=== PATIENT | female | born 1945 | race Hispanic/Latino ===

== ENCOUNTER 2018-04-06 16:02 | Inpatient (IN) | payer MEDICARE ==
[~2018-04-06] VITALS: Ht 162.6 cm; Wt 77.1 kg
[2018-04-06] MEDS ORDERED: PANTOPRAZOLE 40 MG 10ML VIAL IV ONE ×2 (16:45→20:00)
[2018-04-06 16:52] LABS: ABG HCO3 19 mmol/L (23-28); ABG PCO2 26 mmHg (41-51); ABG PH 7.47 (7.31-7.41); ABG PO2 60 mmHg (80-105)
[2018-04-06 16:56] LABS: BASOPHILS % 0.3 % (0.0-1.0); EOSINOPHILS # (AUTO) 0.1 (0.0-0.4); EOSINOPHILS % 0.5 % (0.0-6.0); HEMATOCRIT 29.3 % (34.2-44.1); HEMOGLOBIN 9.6 g/dL (12.0-16.0); LYMPHOCYTES # (AUTO) 2.4 (1.0-3.2); LYMPHOCYTES % 20.1 % (18.0-39.1); MEAN CORPUSCULAR HGB CONC 32.8 g/dL (31-35); MEAN CORPUSCULAR VOLUME 79.4 fL (81-99); MONOCYTES % 8.1 % (4.4-11.3); NEUTROPHILS # (AUTO) 8.5 (2.1-6.9); NEUTROPHILS % 70.3 % (38.7-80.0); PLATELET COUNT 538 x10e3/uL (140-360); RED BLOOD COUNT 3.69 x10e6/uL (3.6-5.1); RED CELL DISTRIBUTION WIDTH 13.9 % (11.7-14.4)
[2018-04-06 17:04] LABS: INR 1.16; PROTHROMBIN TIME 15.8 seconds (11.9-14.5)
[2018-04-06 17:05] LABS: PARTIAL THROMBOPLASTIN TIME 41.1 seconds (23.8-35.5)
[2018-04-06] MEDS ORDERED: AMLODIPINE BESY10 MG PO (17:05)
[2018-04-06] MEDS ORDERED: LOSARTAN-HCTZ1 EAC1 PEG (17:05)
[2018-04-06 17:14] LABS: ALANINE AMINOTRANSFERASE 65 IU/L (0-55); ALBUMIN 2.8 g/dL (3.5-5.0); ALBUMIN/GLOBULIN RATIO 0.5 (0.8-2.0); ALKALINE PHOSPHATASE 154 IU/L (40-150); ANION GAP 16.5 mmol/L (8-16); BLOOD UREA NITROGEN 26 mg/dL (7-26); BUN/CREATININE RATIO 16 (6-25); CALCIUM 9.1 mg/dL (8.4-10.2); CARBON DIOXIDE 21 mmol/L (22-29); CHLORIDE 90 mmol/L (98-107); CREATINE KINASE 83 IU/L (29-168); CREATININE, SERUM 1.62 mg/dL (0.57-1.11); EST GLOMERULAR FILTRATION RATE 31 ML/MIN (60-); GLUCOSE 128 mg/dL (74-118); MAGNESIUM 2.3 MG/DL (1.3-2.1); POTASSIUM 3.5 mmol/L (3.5-5.1); SODIUM 124 mmol/L (136-145)
[2018-04-06 17:23] LABS: B-TYPE NATRIURETIC PEPTIDE2 32.5 pg/mL (0-100)
[2018-04-06] MEDS ORDERED: ENOXAPARIN SODIUM INJ 100 MG/ML SYR SC ONE (17:45)
--- NOTE | 2018-04-06 18:40 | NUR ---
NOTIFIED POWER SWITCHBOARD OPERATOR TO PAGE ULTRASOUND FOR STAT ECHO.
[2018-04-06] MEDS ORDERED: AZITHROMYCIN 500MG/NS 250 ML 250 ML IV SCH (19:30)
[2018-04-06] MEDS ORDERED: ONDANSETRON HCL INJ 2MG/ML 2ML 2 MG/ML VIAL IV PRN (19:45)
[2018-04-06] MEDS ORDERED: SODIUM CHLORIDE 0.9% 1000ML 1,000 ML IV ONE (19:45)
[2018-04-06 19:57] LABS: CLARITY,URINE SL CLOUDY (CLEAR); COLOR,URINE YELLOW (YELLOW); LEUKOCYTE ESTERASE ,URINE NEGATIVE (NEGATIVE); NITRITE,URINE NEGATIVE (NEGATIVE)
[2018-04-06 19:58] LABS: BILIRUBIN,URINE NEGATIVE (NEGATIVE); EPITHELIAL CELLS,URINE MODERATE /LPF; HYALINE CASTS 0-1 (0-1); KETONES,URINE NEGATIVE (NEGATIVE); PROTEIN,URINE DIPSTICK NEGATIVE (NEGATIVE); RBC,URINE 0-5 /HPF (0-5); RENAL EPITHELIAL CELLS,URINE FEW; TRANSITIONAL EPI CELLS,URINE MANY; URINE UROBILINOGEN 0.2 mg/dL (0.2 - 1); WBC,URINE (MAN) 0-5 /HPF (0-5)
--- NOTE | 2018-04-06 20:16 | Diagnostic Imaging Report ---
EXAMINATION: CHEST 2 VIEWS INDICATION: ^SOB ^[id number] ^[id number] COMPARISON: None FINDINGS: PA and lateral views TUBES and LINES: None. LUNGS: Lungs are well inflated. Bibasilar opacities likely representing atelectasis from adjacent effusions. Superimposed consolidation not excluded. Central pulmonary venous congestion. PLEURA: Small bilateral pleural effusions, left greater than right. No pneumothorax. HEART AND MEDIASTINUM: The cardiomediastinal silhouette is partially obscured by adjacent pleural effusions but otherwise unremarkable. BONES AND SOFT TISSUES: No acute osseous lesion. Soft tissues are unremarkable. UPPER ABDOMEN: No free air under the diaphragm. IMPRESSION: Small bilateral pleural effusions, left greater than right, with adjacent atelectasis. Superimposed consolidation not excluded. Signed by: DR. Silvestre Juarez MD on 04/06/2018 8:13 PM
[2018-04-06] MEDS: CEFTRIAXONE SOD 1 GM/NS 50 ML 50 ML IV SCH (20:17)
--- NOTE | 2018-04-06 20:25 | Diagnostic Imaging Report ---
Ventilation/perfusion lung scan Clinical Information: 73 F with SOB x 3 days and back pain Comparison: Chest radiograph 04/06/2018; chest CT without contrast 04/06/2018 Discussion: Xenon-133 gas 20 mCi was administered via inhalation. Dynamic images of the lungs in the posterior projection were obtained through single breath, equilibrium, and washout phases. Distribution of tracer activity is minimally irregular throughout the lungs. There are no segmental ventilatory defects. Washout of tracer is mildly delayed with no air trapping. Perfusion images of the lungs were obtained in multiple projections following intravenous administration of approximately 6 mCi of Tc-99m MAA. Distribution of tracer is mildly irregular throughout the lungs. The left major fissure is widened. The contours of the lungs are well demarcated. There are no segmental perfusion defects of any size. The cardiomediastinal silhouette is unremarkable. Impression: 1. Scan findings represent a VERY LOW probability for acute pulmonary embolic disease based on the PIOPED II criteria. 2. Scan evidence of diffuse parenchymal and/or obstructive lung disease. 3. Widening of the left major fissure may be due to fluid loculation or scarring. Signed by: Dr. Hiwot Belcher M.D. on 04/06/2018 8:22 PM
--- NOTE | 2018-04-06 20:48 | Diagnostic Imaging Report ---
EXAM: CT Chest WITHOUT contrast INDICATION: Shortness of breath. ^SOB ^Y COMPARISON: None TECHNIQUE: Chest was scanned utilizing a multidetector helical scanner from the lung apex through the level of the adrenal glands without administration of IV contrast. Absence of intravenous contrast decreases sensitivity for detection of lymphadenopathy and vascular pathology. Coronal and sagittal reformations were obtained. Routine protocol was performed. IV CONTRAST: None COMPLICATIONS: None RADIATION DOSE: Total DLP: 411.9 mGy*cm Estimated effective dose: (DLP x 0.014 x size factor) mSv Dose modulation, iterative reconstruction, and/or weight based adjustment of the mA/kV was utilized to reduce the radiation dose to as low as reasonably achievable. FINDINGS: LINES/ TUBES: None. LUNGS AND AIRWAYS: Biapical pleural-parenchymal scarring. Bilateral lower lobe atelectasis secondary to adjacent pleural effusions. Right upper lobe 4 mm nodule (series 3 image 22). Mild smooth interlobular septal thickening. Central airways are clear. PLEURA: Small bilateral pleural effusions, left greater than right. HEART AND MEDIASTINUM: The thyroid gland is normal. No mediastinal, hilar or axillary lymphadenopathy. Prominent mostly subcentimeter mediastinal lymph nodes, largest measuring 1.1 cm, likely reactive. The heart is normal in size.. Small pericardial effusion. Main pulmonary artery measures 3 cm. Mild aortic and left anterior descending coronary artery calcifications. UPPER ABDOMEN: Small hiatal hernia. Submucosal fat deposition in the stomach. Otherwise, unremarkable. BONES: There are degenerative changes in the thoracic spine. SOFT TISSUES: Unremarkable. IMPRESSION: Mild fluid overload with mild interstitial edema, small bilateral pleural effusions with adjacent atelectasis, and small pericardial effusion. Signed by: DR. Silvestre Juarez MD on 04/06/2018 8:45 PM
[2018-04-06] MEDS ORDERED: FAMOTIDINE 20 MG/2 ML VIAL IV SCH (21:00)
[2018-04-07] VITALS (7 sets, daily range): BP systolic 132–149; BP diastolic 54–61
[2018-04-07 00:19] LABS: BASOPHILS % 0.3 % (0.0-1.0); EOSINOPHILS # (AUTO) 0.1 (0.0-0.4); EOSINOPHILS % 0.4 % (0.0-6.0); HEMATOCRIT 25.8 % (34.2-44.1); HEMOGLOBIN 8.6 g/dL (12.0-16.0); LYMPHOCYTES % 16.7 % (18.0-39.1); MEAN CORPUSCULAR HEMOGLOBIN 26.1 pg (28-32); MEAN CORPUSCULAR HGB CONC 33.3 g/dL (31-35); MEAN CORPUSCULAR VOLUME 78.2 fL (81-99); MONOCYTES # (AUTO) 0.8 (0.2-0.8); MONOCYTES % 6.6 % (4.4-11.3); NEUTROPHILS # (AUTO) 8.9 (2.1-6.9); NEUTROPHILS % 75.4 % (38.7-80.0); RED CELL DISTRIBUTION WIDTH 13.7 % (11.7-14.4)
[2018-04-07 00:33] LABS: CREATINE KINASE 65 IU/L (29-168)
[2018-04-07 00:45] LABS: PLATELET COUNT 480 x10e3/uL (140-360)
[2018-04-07 05:49] LABS: BASOPHILS % 0.1 % (0.0-1.0); EOSINOPHILS # (AUTO) 0.2 (0.0-0.4); HEMOGLOBIN 8.3 g/dL (12.0-16.0); LYMPHOCYTES # (AUTO) 1.7 (1.0-3.2); LYMPHOCYTES % 18.3 % (18.0-39.1); MEAN CORPUSCULAR HGB CONC 33.2 g/dL (31-35); MEAN CORPUSCULAR VOLUME 78.4 fL (81-99); MONOCYTES # (AUTO) 0.6 (0.2-0.8); MONOCYTES % 6.5 % (4.4-11.3); NEUTROPHILS # (AUTO) 6.6 (2.1-6.9); NEUTROPHILS % 72.2 % (38.7-80.0); PLATELET COUNT 482 x10e3/uL (140-360); RED BLOOD COUNT 3.19 x10e6/uL (3.6-5.1); RED CELL DISTRIBUTION WIDTH 13.6 % (11.7-14.4)
[2018-04-07 06:07] LABS: ALANINE AMINOTRANSFERASE 46 IU/L (0-55); ALBUMIN 2.1 g/dL (3.5-5.0); ALBUMIN/GLOBULIN RATIO 0.5 (0.8-2.0); ALKALINE PHOSPHATASE 118 IU/L (40-150); ANION GAP 13.6 mmol/L (8-16); BLOOD UREA NITROGEN 18 mg/dL (7-26); BUN/CREATININE RATIO 21 (6-25); CALCIUM 8.6 mg/dL (8.4-10.2); CARBON DIOXIDE 21 mmol/L (22-29); CHLORIDE 99 mmol/L (98-107); CHOL/HDL RATIO 4.7 (3.0-3.6); CHOLESTEROL 85 MD/DL (0-199); CREATININE, SERUM 0.85 mg/dL (0.57-1.11); EST GLOMERULAR FILTRATION RATE > 60 ML/MIN (60-); GLUCOSE 107 mg/dL (74-118); HDL CHOLESTEROL 18 MG/DL (40-60); LDL CHOLESTEROL 53 MG/DL (60-130); POTASSIUM 3.6 mmol/L (3.5-5.1); SODIUM 130 mmol/L (136-145); TRIGLYCERIDES 69 MG/DL (0-149)
--- NOTE | 2018-04-07 07:00 | NUR ---
RECEIVED REPORT FROM OFF GOING NURSE. PATIENT IN ROOM IN HOSPITAL BED. AWAKE AND ALERT, NO S/S OF ACUTE DISTRESS. RESP EVEN AND NONLABORED. PT REPORTS BECOMING SOB WHEN AMBULATES OR EXERTS HERSELF. PENDING ROOM ASSIGNMENT. BED DOWN CALL LIGHT IN REACH AND WHEELS LOCKED. WILL CONTINUE TO MONITOR.
[2018-04-07] MEDS: CEFTRIAXONE SOD 1 GM/NS 50 ML 50 ML IV SCH ×2 (07:47→20:08)
[2018-04-07] MEDS ORDERED: PANTOPRAZOLE 40 MG 10ML VIAL IV SCH (09:00)
[2018-04-07 12:44] LABS: CREATINE KINASE 43 IU/L (29-168)
[2018-04-07 13:12] LABS: BASOPHILS % 0.2 % (0.0-1.0); EOSINOPHILS # (AUTO) 0.1 (0.0-0.4); HEMATOCRIT 26.6 % (34.2-44.1); HEMOGLOBIN 8.8 g/dL (12.0-16.0); LYMPHOCYTES # (AUTO) 1.4 (1.0-3.2); MEAN CORPUSCULAR HGB CONC 33.1 g/dL (31-35); MEAN CORPUSCULAR VOLUME 78.7 fL (81-99); MONOCYTES # (AUTO) 0.5 (0.2-0.8); MONOCYTES % 4.9 % (4.4-11.3); NEUTROPHILS # (AUTO) 8.1 (2.1-6.9); NEUTROPHILS % 79.2 % (38.7-80.0); PLATELET COUNT 531 x10e3/uL (140-360); RED BLOOD COUNT 3.38 x10e6/uL (3.6-5.1)
--- NOTE | 2018-04-07 14:53 | History and Physical ---
PRIMARY CARE PROVIDER: Dr. Ge Hawkins. MANAGER OF PROGRAM: Dr. Luis Eduardo Le. CHIEF COMPLAINT: Increasing shortness of breath, both lower extremities edema. HISTORY OF PRESENT ILLNESS: Patient is a 73-year-old female, presently came in with progressive increasing shortness of breath for the past few days. She has also has some lower extremity swelling. Patient had workup done. Chest x-ray showed vascular congestion. CT scan of the chest showed that she does have fluid overload with mild interstitial edema, bilateral pleural effusions with adjacent atelectasis and small pericardial effusion. The patient does have baseline hypertension. She at baseline taking Norvasc and losartan and hydrochlorothiazide. Patient is otherwise stable at this time. PAST MEDICAL HISTORY: Hypertension. HOME MEDICATIONS: Losartan and hydrochlorothiazide and Norvasc. PAST SURGICAL HISTORY: Noncontributory. SOCIAL HISTORY: Patient does not smoke or use alcohol. No recreational drugs. ALLERGIES: NO KNOWN ALLERGY. PHYSICAL EXAMINATION GENERAL: The patient is in no acute distress, is awake. VITAL SIGNS: Temperature is 98. Blood pressure 123/62, pulse rate is 95, respirations 22. HEENT: Normocephalic. Atraumatic. Anicteric. NECK: Supple grossly. PULMONARY: Diminished breath sounds at bases with some rales. CARDIOVASCULAR: S1 and S2. Regular rate and rhythm. Possible murmur. ABDOMEN: Soft, nontender, no distention. EXTREMITIES: Trace edema. NEUROLOGIC: No focal deficit. LABORATORY: WBC 12, hemoglobin is 9.6, hematocrit 29.3, platelets are 538. Chemistries: sodium is 124, potassium 3.5, chloride 90, bicarb 21, BUN is 26, creatinine 1.6, glucose is 128. Liver enzymes slightly elevated. AST 74, ALT 65, alkaline phosphorus 154. Total protein is 8.2 with albumin at 2.8. Chest x-ray showed vascular congestion confirmed with CT scan. IMPRESSIONS 1. Acute congestive heart failure. Echocardiogram with ejection fraction is still pending. 2. Hyponatremia, most likely secondary to diuretic hydrochlorothiazide. 3. Baseline hypertension. 4. Mild pericardial effusion. PLAN: The patient has already been admitted. Telemetry. Conversation with Dr. Luis Eduardo Le. Two-D echocardiogram. Home medication. Will discontinue Norvasc and hydrochlorothiazide, losartan for now. Start the patient on IV furosemide. Will monitor the patient fluids. Repeat her lab work. Will monitor patient closely and adjust medications. Job#: [id number] LEXI
--- NOTE | 2018-04-07 15:05 | NUR ---
Visit made by the Spiritual Care Department Pastoral Visitor, Digna Garcia. PV provided pastoral presence, prayer, hospitality, and supportive listening. Pastoral Visitor informed pt/family of the scope of Special Events Fundraiser Services and availability. MICHAEL YBARRA Cabinet Finisher Spiritual Care Department O: [phone] Pager: [phone] ([phone] number calling from)
[2018-04-07] MEDS: ENOXAPARIN SOD INJ 40 MG/0.4 ML SYR SC SCH (16:40)
[2018-04-07] MEDS ORDERED: ACETAMINOPHEN 325 MG TAB PO PRN (17:45)
[2018-04-07 18:38] LABS: BASOPHILS % 0.2 % (0.0-1.0); EOSINOPHILS # (AUTO) 0.1 (0.0-0.4); EOSINOPHILS % 1.5 % (0.0-6.0); HEMATOCRIT 27.8 % (34.2-44.1); HEMOGLOBIN 9.1 g/dL (12.0-16.0); LYMPHOCYTES # (AUTO) 1.5 (1.0-3.2); LYMPHOCYTES % 16.4 % (18.0-39.1); MEAN CORPUSCULAR HEMOGLOBIN 25.9 pg (28-32); MEAN CORPUSCULAR HGB CONC 32.7 g/dL (31-35); MONOCYTES # (AUTO) 0.6 (0.2-0.8); MONOCYTES % 6.5 % (4.4-11.3); NEUTROPHILS % 74.5 % (38.7-80.0); PLATELET COUNT 535 x10e3/uL (140-360); RED BLOOD COUNT 3.52 x10e6/uL (3.6-5.1)
--- NOTE | 2018-04-07 19:00 | NUR ---
Report received from AM nurse. Patient received alert/oriented x3 resting on her bed with little SOB. Patient continued on 2liters o2 oxygen via nasal canula,spo2 maintained 90%. Denied pain. Patient instructed to call for help as needed. Bed in lower position,locked. Call beltre within reach. Will continue to monitor.
--- NOTE | 2018-04-07 19:45 | NUR ---
Patient assisted to increased O2 on 3liters via nasal canula, Spo2 maintained 97% at this time. Will continue to monitor.
[2018-04-07] MEDS ORDERED: SODIUM CHLORIDE 0.9% 250ML 250 ML ONE (19:49)
[2018-04-07] MEDS: AZITHROMYCIN 500MG/NS 250 ML 250 ML IV SCH (21:04)
--- NOTE | 2018-04-07 22:45 | NUR ---
Patient assisted to give bed bath, patient tolerated well. V/S WNL. Will continue to monitor.
[2018-04-08] VITALS (7 sets, daily range): BP systolic 126–154; BP diastolic 6–68
[2018-04-08 00:09] LABS: BASOPHILS % 0.2 % (0.0-1.0); EOSINOPHILS # (AUTO) 0.2 (0.0-0.4); EOSINOPHILS % 2.4 % (0.0-6.0); HEMATOCRIT 27.1 % (34.2-44.1); HEMOGLOBIN 8.8 g/dL (12.0-16.0); LYMPHOCYTES # (AUTO) 2.1 (1.0-3.2); LYMPHOCYTES % 22.9 % (18.0-39.1); MEAN CORPUSCULAR HEMOGLOBIN 25.7 pg (28-32); MEAN CORPUSCULAR HGB CONC 32.5 g/dL (31-35); MONOCYTES # (AUTO) 0.6 (0.2-0.8); NEUTROPHILS % 66.5 % (38.7-80.0); PLATELET COUNT 547 x10e3/uL (140-360); RED BLOOD COUNT 3.43 x10e6/uL (3.6-5.1); RED CELL DISTRIBUTION WIDTH 13.9 % (11.7-14.4)
[2018-04-08 05:35] LABS: BASOPHILS % 0.3 % (0.0-1.0); EOSINOPHILS # (AUTO) 0.3 (0.0-0.4); EOSINOPHILS % 3.5 % (0.0-6.0); HEMATOCRIT 27.3 % (34.2-44.1); HEMOGLOBIN 8.9 g/dL (12.0-16.0); LYMPHOCYTES # (AUTO) 2.2 (1.0-3.2); LYMPHOCYTES % 23.5 % (18.0-39.1); MEAN CORPUSCULAR HEMOGLOBIN 25.6 pg (28-32); MEAN CORPUSCULAR HGB CONC 32.6 g/dL (31-35); MEAN CORPUSCULAR VOLUME 78.7 fL (81-99); MONOCYTES # (AUTO) 0.6 (0.2-0.8); MONOCYTES % 6.6 % (4.4-11.3); NEUTROPHILS % 65.3 % (38.7-80.0); PLATELET COUNT 555 x10e3/uL (140-360); RED BLOOD COUNT 3.47 x10e6/uL (3.6-5.1); RED CELL DISTRIBUTION WIDTH 14.1 % (11.7-14.4)
[2018-04-08 06:00] LABS: ANION GAP 13.6 mmol/L (8-16); BLOOD UREA NITROGEN 10 mg/dL (7-26); BUN/CREATININE RATIO 13 (6-25); CARBON DIOXIDE 22 mmol/L (22-29); CHLORIDE 101 mmol/L (98-107); CREATININE, SERUM 0.78 mg/dL (0.57-1.11); EST GLOMERULAR FILTRATION RATE > 60 ML/MIN (60-); GLUCOSE 97 mg/dL (74-118); POTASSIUM 3.6 mmol/L (3.5-5.1); SODIUM 133 mmol/L (136-145)
--- NOTE | 2018-04-08 06:23 | NUR ---
Assisted patient multiple times to use bedside commode, patient tolerated well. Will continue to monitor.
--- NOTE | 2018-04-08 07:06 | NUR ---
Report given to oncoming RN Mat,walking round done.
[2018-04-08] MEDS: CEFTRIAXONE SOD 1 GM/NS 50 ML 50 ML IV SCH ×2 (08:00→19:45)
[2018-04-08] MEDS: AZITHROMYCIN 500MG/NS 250 ML 250 ML IV SCH (08:34)
[2018-04-08] MEDS ORDERED: NON-FORMULARY MEDICATION (Losartan/Hydrochlorothiazide (Losartan-Hctz 100-25 Mg Tab) 1 TAB PEG SCH (09:00)
[2018-04-08] MEDS ORDERED: LACTULOSE SYRUP 20 GM/30 ML UDC PO ONE (09:00)
[2018-04-08] MEDS: DOCUSATE SODIUM 100 MG CAP PO SCH ×2 (09:49→16:29)
[2018-04-08] MEDS: METOPROLOL TARTRATE 25 MG TAB PO SCH (09:49)
--- NOTE | 2018-04-08 09:50 | Consultation ---
DATE OF CONSULTATION: April 07, 2018 CARDIOLOGY CONSULTATION REASON FOR CONSULTATION: CHF. REFERRING PHYSICIAN: Dr. Chapo Soares HPI: This is a pleasant, 73-year-old female that presented with shortness of breath. According to the patient, since February she was having congestion, runny nose, coughing that comes and goes that finally got better in March. She stated the shortness of breath got worse accompanied with ankle edema that she saw the PCP. She stated the PCP sent her to the emergency room for further evaluation. Cardiology was consulted for possible CHF. She denied any chest pain, any palpitations, any diaphoresis, any nausea or vomiting. She had a V/Q scan that showed low probability for PE. CT chest showed mild fluid overload with mild interstitial edema, small bilateral pleural effusions and a small pericardial effusion. BNP was 32.5. Troponin was negative x3. PAST MEDICAL HISTORY: Hypertension. PAST SURGICAL HISTORY: None. FAMILY HISTORY: Positive for hypertension. SOCIAL HISTORY: No smoking. No drinking. She lives at home with a son. MEDICATIONS: She was on Norvasc 10 mg daily and losartan with hydrochlorothiazide. ALLERGIES: SHE IS NOT ALLERGIC TO ANY MEDICATION. REVIEW OF SYSTEMS: Negative, except those mentioned above. She is positive for generalized weakness and shortness of breath. PHYSICAL EXAMINATION VITALS: Temperature 99, heart rate 103, blood pressure 154/68, respirations 20, oxygen saturation 97% on 2 liters nasal cannula. GENERAL: She is awake, alert and oriented x3 but with weakness generalized. HEENT: Mucous membranes are moist. NECK: Supple. LUNGS: Bilateral with decreased breath sounds. CARDIOVASCULAR: S1, S2 present. ABDOMEN: Soft. EXTREMITIES: Bilateral lower with trace edema on the ankle. NEUROLOGIC: Intact. LABS: Sodium 133, potassium 3.6, chloride 101, CO2 is 22, BUN 10, creatinine 0.78, glucose 97. White blood cells 9.18, hemoglobin 8.9, hematocrit 27.3, platelets 555. PT 15.8, PTT 41.1 and INR 1.16. IMPRESSION 1. Possible bronchitis. 2. Anemia. 3. Constipation. 4. Acute diastolic congestive heart failure. 5. Ankle edema. 6. Hyponatremia. 7. Elevated platelet count. 8. Hypertension ASSESSMENT AND PLAN: Due to the ankle edema, we will go ahead and hold the Norvasc. Continue antibiotic. Echo looks normal with EF 50% to 55%. She needs workup for anemia and elevated platelet count. Put her on low-dose beta kena for the tachycardia. Further cardiac workup pending clinical course. Thank you for this consultation. DICTATED BY: Adriana Avalos NP Job#: [id number] DONNA
[2018-04-08 12:28] LABS: BASOPHILS % 0.2 % (0.0-1.0); EOSINOPHILS # (AUTO) 0.2 (0.0-0.4); EOSINOPHILS % 2.3 % (0.0-6.0); HEMATOCRIT 29.4 % (34.2-44.1); HEMOGLOBIN 9.5 g/dL (12.0-16.0); LYMPHOCYTES % 22.1 % (18.0-39.1); MEAN CORPUSCULAR HEMOGLOBIN 25.5 pg (28-32); MEAN CORPUSCULAR HGB CONC 32.3 g/dL (31-35); MONOCYTES # (AUTO) 0.5 (0.2-0.8); MONOCYTES % 5.4 % (4.4-11.3); NEUTROPHILS # (AUTO) 6.1 (2.1-6.9); NEUTROPHILS % 68.9 % (38.7-80.0); PLATELET COUNT 603 x10e3/uL (140-360); RED BLOOD COUNT 3.72 x10e6/uL (3.6-5.1); RED CELL DISTRIBUTION WIDTH 14.1 % (11.7-14.4)
[2018-04-08] MEDS: ENOXAPARIN SOD INJ 40 MG/0.4 ML SYR SC SCH (16:29)
[2018-04-08 18:30] LABS: BASOPHILS % 0.2 % (0.0-1.0); EOSINOPHILS # (AUTO) 0.3 (0.0-0.4); EOSINOPHILS % 2.9 % (0.0-6.0); HEMATOCRIT 28.3 % (34.2-44.1); HEMOGLOBIN 9.1 g/dL (12.0-16.0); LYMPHOCYTES # (AUTO) 2.3 (1.0-3.2); LYMPHOCYTES % 26.2 % (18.0-39.1); MEAN CORPUSCULAR HEMOGLOBIN 25.7 pg (28-32); MEAN CORPUSCULAR HGB CONC 32.2 g/dL (31-35); MEAN CORPUSCULAR VOLUME 79.9 fL (81-99); MONOCYTES # (AUTO) 0.5 (0.2-0.8); MONOCYTES % 5.8 % (4.4-11.3); NEUTROPHILS # (AUTO) 5.5 (2.1-6.9); NEUTROPHILS % 64.1 % (38.7-80.0); PLATELET COUNT 578 x10e3/uL (140-360); RED BLOOD COUNT 3.54 x10e6/uL (3.6-5.1); RED CELL DISTRIBUTION WIDTH 14.1 % (11.7-14.4)
[2018-04-09] VITALS (9 sets, daily range): BP systolic 118–142; BP diastolic 49–64
[2018-04-09 04:56] LABS: BASOPHILS % 0.3 % (0.0-1.0); EOSINOPHILS # (AUTO) 0.3 (0.0-0.4); EOSINOPHILS % 4.8 % (0.0-6.0); HEMATOCRIT 25.4 % (34.2-44.1); HEMOGLOBIN 8.3 g/dL (12.0-16.0); LYMPHOCYTES # (AUTO) 2.1 (1.0-3.2); LYMPHOCYTES % 28.9 % (18.0-39.1); MEAN CORPUSCULAR HEMOGLOBIN 25.9 pg (28-32); MEAN CORPUSCULAR HGB CONC 32.7 g/dL (31-35); MEAN CORPUSCULAR VOLUME 79.1 fL (81-99); MONOCYTES # (AUTO) 0.4 (0.2-0.8); MONOCYTES % 6.2 % (4.4-11.3); NEUTROPHILS # (AUTO) 4.2 (2.1-6.9); NEUTROPHILS % 58.8 % (38.7-80.0); PLATELET COUNT 535 x10e3/uL (140-360); RED BLOOD COUNT 3.21 x10e6/uL (3.6-5.1); RED CELL DISTRIBUTION WIDTH 14.1 % (11.7-14.4)
[2018-04-09] MEDS: CEFTRIAXONE SOD 1 GM/NS 50 ML 50 ML IV SCH ×2 (07:55→19:30)
--- NOTE | 2018-04-09 08:02 | NUR ---
NOTIFIED PT CONTINUES TO BE SOB AND BREATHING IS LABORED, RECEIVED ORDERS
[2018-04-09] MEDS ORDERED: FUROSEMIDE INJ 10 MG/ML 4 ML VIAL IV ONE (08:15)
[2018-04-09] MEDS: FUROSEMIDE 40 MG TAB PO SCH (08:40)
[2018-04-09] MEDS: DOCUSATE SODIUM 100 MG CAP PO SCH ×2 (08:40→16:55)
--- NOTE | 2018-04-09 08:42 | Diagnostic Imaging Report ---
Examination: Single AP view of the chest. COMPARISON: Chest CT 04/06/2018 INDICATION: Shortness of breath DISCUSSION: The lungs remain well-inflated. Small bilateral pleural effusions with passive atelectasis of the lower lobes, unchanged compared to CT and chest radiographs 04/06/2018. Stable enlargement of the cardiac silhouette, shown to reflect a small pericardial effusion. Mild prominence of the pulmonary interstitium also grossly unchanged when accounting for differences in technique. No acute osseous abnormality. IMPRESSION: Stable interstitial edema and small bilateral pleural effusions relative to 04/06/2018. Signed by: Dr. Kobi Nelson M.D. on 04/09/2018 8:38 AM
[2018-04-09] MEDS: METOPROLOL TARTRATE 25 MG TAB PO SCH (08:43)
[2018-04-09 08:48] LABS: % IRON SATURATION 16 % (15-50); IRON 22 ug/dL (50-170); TOTAL IRON BINDING CAPACITY 141 ug/dL (261-478); TRANSFERRIN 101 mg/dL (180-382)
[2018-04-09] MEDS ORDERED: HYDROCHLOROTHIAZIDE 25 MG TAB PO SCH (09:00)
[2018-04-09] MEDS ORDERED: LOSARTAN POTASSIUM 100 MG TAB PO SCH (09:00)
[2018-04-09] MEDS: POTASSIUM CHLORIDE 10MEQ EA PO SCH (09:37)
[2018-04-09 11:48] LABS: BASOPHILS % 0.2 % (0.0-1.0); EOSINOPHILS # (AUTO) 0.3 (0.0-0.4); HEMATOCRIT 29.6 % (34.2-44.1); HEMOGLOBIN 9.6 g/dL (12.0-16.0); LYMPHOCYTES % 24.1 % (18.0-39.1); MEAN CORPUSCULAR HEMOGLOBIN 25.5 pg (28-32); MEAN CORPUSCULAR HGB CONC 32.4 g/dL (31-35); MEAN CORPUSCULAR VOLUME 78.5 fL (81-99); MONOCYTES # (AUTO) 0.5 (0.2-0.8); MONOCYTES % 5.5 % (4.4-11.3); NEUTROPHILS # (AUTO) 5.6 (2.1-6.9); NEUTROPHILS % 65.5 % (38.7-80.0); PLATELET COUNT 640 x10e3/uL (140-360); RED BLOOD COUNT 3.77 x10e6/uL (3.6-5.1); RED CELL DISTRIBUTION WIDTH 14.1 % (11.7-14.4)
[2018-04-09] MEDS: ENOXAPARIN SOD INJ 40 MG/0.4 ML SYR SC SCH (16:55)
--- NOTE | 2018-04-09 19:30 | NUR ---
reported off at pt's bedside from off going nurse, pt aaox3 breathing even and unlabored with o2 on at 2.0 liters per n/c
[2018-04-10] VITALS (8 sets, daily range): BP systolic 114–129; BP diastolic 51–61
--- NOTE | 2018-04-10 | NUR ---
pt resting well with eyes closed received a shower earlier this night and pt is sleeping well.
[2018-04-10 05:20] LABS: BASOPHILS % 0.1 % (0.0-1.0); EOSINOPHILS # (AUTO) 0.4 (0.0-0.4); EOSINOPHILS % 5.4 % (0.0-6.0); HEMATOCRIT 26.8 % (34.2-44.1); HEMOGLOBIN 8.9 g/dL (12.0-16.0); LYMPHOCYTES # (AUTO) 2.3 (1.0-3.2); LYMPHOCYTES % 34.7 % (18.0-39.1); MEAN CORPUSCULAR HEMOGLOBIN 25.8 pg (28-32); MEAN CORPUSCULAR HGB CONC 33.2 g/dL (31-35); MEAN CORPUSCULAR VOLUME 77.7 fL (81-99); MONOCYTES # (AUTO) 0.4 (0.2-0.8); MONOCYTES % 5.4 % (4.4-11.3); NEUTROPHILS # (AUTO) 3.6 (2.1-6.9); NEUTROPHILS % 53.5 % (38.7-80.0); PLATELET COUNT 599 x10e3/uL (140-360); RED BLOOD COUNT 3.45 x10e6/uL (3.6-5.1)
[2018-04-10 05:35] LABS: ANION GAP 14.8 mmol/L (8-16); BLOOD UREA NITROGEN 11 mg/dL (7-26); BUN/CREATININE RATIO 14 (6-25); CALCIUM 9.4 mg/dL (8.4-10.2); CARBON DIOXIDE 24 mmol/L (22-29); CHLORIDE 102 mmol/L (98-107); CREATININE, SERUM 0.77 mg/dL (0.57-1.11); EST GLOMERULAR FILTRATION RATE > 60 ML/MIN (60-); GLUCOSE 92 mg/dL (74-118); POTASSIUM 3.8 mmol/L (3.5-5.1); SODIUM 137 mmol/L (136-145)
--- NOTE | 2018-04-10 07:15 | NUR ---
no change in pt's status, reported off with oncoming nurse at pt's bedside.
[2018-04-10] MEDS: CEFTRIAXONE SOD 1 GM/NS 50 ML 50 ML IV SCH ×2 (08:30→19:50)
[2018-04-10] MEDS ORDERED: IRON SUCROSE 100 MG in SODIUM CHLORIDE 0.9% 100 ML 100 ML IV SCH (09:30)
[2018-04-10] MEDS: FUROSEMIDE 40 MG TAB PO SCH (09:33)
[2018-04-10] MEDS: POTASSIUM CHLORIDE 10MEQ EA PO SCH (09:33)
[2018-04-10] MEDS: DOCUSATE SODIUM 100 MG CAP PO SCH ×2 (09:33→16:23)
[2018-04-10] MEDS: METOPROLOL TARTRATE 25 MG TAB PO SCH (09:33)
--- NOTE | 2018-04-10 10:30 | NUR ---
PT MADE AWARE ON NEED FOR STOOL FOR OCCULT TEST AND NPO STATUS FOR CT ABDOMEN PENDING
[2018-04-10] MEDS ORDERED: IOPAMIDOL 370 MG/ML 200 ML INFUS..BTL INJ ONE (13:25)
[2018-04-10] MEDS ORDERED: SODIUM CHLORIDE 0.9% 50ML 50 ML ONE (13:25)
--- NOTE | 2018-04-10 14:31 | Diagnostic Imaging Report ---
EXAM: CT Abdomen and Pelvis WITH contrast INDICATION: Anemia COMPARISON: Chest radiograph 04/09/2018, CT Chest 04/09/2018. TECHNIQUE: Abdomen and pelvis were scanned utilizing a multidetector helical scanner from the lung base to the pubic symphysis after administration of IV contrast. Coronal and sagittal reformations were obtained. Routine protocol was performed. Scan was performed when during portal venous phase. IV CONTRAST: 100 cc Isovue 370 ORAL CONTRAST: Water COMPLICATIONS: None RADIATION DOSE: Total DLP: 793 mGy*cm CTDIvol has been reviewed. It is below the limits set by the Radiation Protocol Committee (RPC). FINDINGS: LINES and TUBES: None. LOWER THORAX: Coronary atherosclerosis. Small bilateral pleural effusions, right greater than left. Small pericardial effusion. Patchy atelectasis in bilateral lower lobes. HEPATOBILIARY: No evidence of focal lesion. No biliary ductal dilation. GALLBLADDER: No radio-opaque stones or sludge. No wall thickening. SPLEEN: No splenomegaly. PANCREAS: No focal masses or ductal dilatation. ADRENALS: No adrenal nodules KIDNEYS/URETERS: Kidneys enhance symmetrically. No evidence of hydronephrosis or stone. There is a fat-containing 2.3 cm left midpole renal lesion, consistent with angiomyolipoma. GI TRACT: No evidence of wall thickening or distension. Appendix is normal. Small hiatal hernia. PELVIC ORGANS/BLADDER: Unremarkable. LYMPH NODES: No lymphadenopathy. VESSELS: Moderate atherosclerotic changes of the abdominal aorta and branch vessels. PERITONEUM / RETROPERITONEUM: No free air or fluid. BONES AND SOFT TISSUES: No acute osseous abnormality. No suspicious lytic or blastic lesions. CONCLUSION: No etiology for the patient's anemia identified in the abdomen or pelvis. Small bilateral pleural effusions and small pericardial effusion. Signed by: Dr. Katherine Elaine MD on 04/10/2018 2:28 PM
--- NOTE | 2018-04-10 15:45 | NUR ---
Nutrition Screen Note RD Recommendation for Physician: -Rec advancing to cardiac diet as tolerated Plan of Care: RD following, monitoring for tolerance and adequacy Nutrition reason for involvement: Diagnosis CHF Primary Diagnose(s): 1. Possible bronchitis. 2. Anemia. 3. Acute diastolic congestive heart failure. PMH: hypertension Ht: 64in Wt: 168.19lb BMI: 28.9kg/m2 IBW: 120lb RD Assessment: (04/10) Chart reviewed. Labs and meds reviewed. 73yo F, who is admitted for SOB. 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 Pt denied chewing/swallowing problems and nausea/vomiting. LBM 04/10, brown stool per pt. Pt reports tolerating clear liquid diet for lunch today. Anticipate pt able to meet nutritional need through PO intake when diet is advanced. Will cont to monitor. Please consult as needed. Current Diet: clear liquid Malnutrition Evaluation (04/10/2018) The patient does not meet criteria for a specified degree of malnutrition at this time. Will re-evaluate at follow-up as appropriate. Diet Education Needs Assessment: Diet education not indicated. Nutrition Care Level: low Signed: Raquel Granado, MS, RD, LD
[2018-04-10] MEDS: ENOXAPARIN SOD INJ 40 MG/0.4 ML SYR SC SCH (16:23)
--- NOTE | 2018-04-10 19:29 | NUR ---
Report received from AM RN Ida. Patient received resting comfortably on her bed. Denied pain and no SOB. No respiratory distress noted. Assisted patient to take to bathroom, tolerated well walk well without assistance. Patient instructed to call for help needed,verbalized and understand. Bed in lower position.locked.Call beltre within reach. Will continue to monitor.
[2018-04-11 00:26] VITALS: BP 135/58
[2018-04-11 04:46] VITALS: BP 132/58
--- NOTE | 2018-04-11 07:02 | NUR ---
Report given to AM DINA French,walking round done.
[2018-04-11 07:30] VITALS: BP 140/54
[2018-04-11] MEDS: CEFTRIAXONE SOD 1 GM/NS 50 ML 50 ML IV SCH (07:47)
[2018-04-11] MEDS: DOCUSATE SODIUM 100 MG CAP PO SCH (08:10)
[2018-04-11] MEDS: FUROSEMIDE 40 MG TAB PO SCH (08:10)
[2018-04-11] MEDS: METOPROLOL TARTRATE 25 MG TAB PO SCH (08:11)
[2018-04-11] MEDS: POTASSIUM CHLORIDE 10MEQ EA PO SCH (08:11)
--- NOTE | 2018-04-11 09:20 | NUR ---
Nuclear Medical Technologist to bedside to discuss plan of care with patient/family. CM/SW role and care transitions discussed. Anticipated discharge plan discussed along with duration of care. CM/SW discussed patients right to make decisions in care. CM/SW work hours given. Patient lives: with son Adrien Valdez Admit/Transfer: thru ED from home POA/Emergency contact: Adrien Valdez [phone] Current/Previous Home Health: none PCP/Follow-up Care: Dr. Hawkins Current/Previous DME: none, reports she is independent Other Services: none Employment Status: retired Areas of Concerns: none Referral Needs: none Education Needs: medical management IMM/FERNÁNDEZ given and signed (if applicable): IMM delivered and explained to pt. She verbalized understanding. Signed copy in chart. Copy to pt. Goal for discharge: Home with no needs CM/SW left business card at the bedside with contact information. Name and number was also written on the patients whiteboard. Patient verbalized understanding of discussion. CM will follow-up with ongoing discharge and transition of care needs.
--- NOTE | 2018-04-11 10:10 | NUR ---
Visit made by the Spiritual Care Department Pastoral Visitor, Eusebio Rodarte. Pt out of room and no family at bedside. A card was left at the bedside to indicate a missed visit from a member of the Spiritual Care team and to inform the pt and family of the availability of a Grocery Associate 24 hours a day/7 days a week. A professor of economics will follow up as able. MICHAEL Rutledgelain Spiritual Care Department O: [phone] Pager: [phone] ([phone] number calling from)
--- NOTE | 2018-04-11 11:17 | Discharge Summary ---
PRIMARY CARE PHYSICIAN: Dr. Ge Hawkins. CONSULTANTS: Dr. Luis Eduardo Le. FINAL DIAGNOSES 1. Acute diastolic dysfunction congestive heart failure with ejection fraction of 55%. 2. Trace pericardial effusion, insignificant. 3. Mild chronic anemia, status post iron infusion. 4. Hypertensive urgency, controlled. 5. Shortness of breath, hypoxic, resolved. DISCHARGE MEDICATION 1. Stop all home medication. 2. Lasix 40 mg q.a.m. 3. Potassium 20 mEq q.a.m. 4. Lopressor 12.5 mg b.i.d. 5. Ferrous sulfate 325 mg b.i.d. 6. Colace 100 mg b.i.d. Follow up visit with Dr. Luis Edaurdo Le in approximately 1 to 2 weeks. Follow up with PCP Dr. Ge Hawkins in approximately 1 week. Follow up to outpatient schedule for gastroenterology workup as planned. SUMMARY: This is a 73-year-old female who came in with bilateral minimal pleural effusions, vascular congestion, increasing shortness of breath. Patient stated she was drinking a lot of water at home. She was on Norvasc and lisinopril HCTZ for her blood pressure. Her sodium level was also low on admission secondary to HCTZ. The patient was stable. She was weak but much improved. The patient had seen by Dr. Luis Eduardo Le. Cardiac enzyme was negative, EKG unremarkable. The patient's echocardiogram showed ejection fraction of 55%. She had a trace pericardial effusion. She had a trace mitral regurgitation as well. There is no significant valvular disease noticed. The patient did receive iron infusion for her iron deficiency anemia. Her folic acid and B12 level were normal. Thyroid function test is adequate as well. The patient is otherwise stable. She is ambulatory. She does not require oxygen. She is comfortable with walking and feeling much better. Education on fluid restriction to 2 liters per 24 hours. Education on a daily weight if needed and if increasing weight may increase diuretic as planned. The patient is otherwise stable. Sodium is 137, potassium 3.8, chloride 102, bicarb 24, BUN 11, creatinine 0.7, glucose 92. WBC 6.7, hemoglobin 8.9, hematocrit 27, platelets is 599. The patient does have increasing platelets secondary to anemia. She did receive again iron infusion. Instructions to stop Norvasc and losartan HCTZ and we will continue with medication at home with the medication as mentioned above. Follow up instructed. Patient was discharged home today. Job#: [id number] EVAN
== END 2018-04-11 10:32 | disposition home or self-care (01) | DRG 292 ==
LOC: ER 16:02 → ERHOLD 19:44 → IMCU 04-07 13:01
PROVIDERS: ADMIT Internal Medicine; ATTEND Internal Medicine
DX: I11.0 Hypertensive heart disease with heart failure (principal); I31.3 Pericardial effusion (noninflammatory); E87.1 Hypo-osmolality and hyponatremia; I50.33 Acute on chronic diastolic (congestive) heart failure; D50.0 Iron deficiency anemia secondary to blood loss (chronic); I34.0 Nonrheumatic mitral (valve) insufficiency; R09.02 Hypoxemia; R60.0 Localized edema; K59.00 Constipation, unspecified; J40 Bronchitis, not specified as acute or chronic; I95.2 Hypotension due to drugs; T50.2X5A Adverse effect of carbonic-anhydrase inhibitors, benzothiadiazides and other diuretics, initial encounter
CPT/HCPCS: 36415; 36600; 71045; 71046; 71250; 74177; 78582; 80048; 80053; 80061; 81001; 82550; 82553; 82607; 82746; 82805; 83540; 83605; 83735; 83880; 84466; 84484; 85025; 85379; 85610; 85730; 86850; 86900; 87040; 87086; 93005; 93306; 93880; 93970; 99284; J0456; J0696; J1650; J1756; J1940; J7030; J7050; Q9967

== ENCOUNTER 2019-02-22 19:39 | Emergency (ER) | payer MEDICARE, OTHER ==
[~2019-02-22] VITALS: Ht 162.6 cm; Wt 77.1 kg
[~2019-02-22 19:39] MED LIST: AMLODIPINE BESY10 MG PO; LOSARTAN-HCTZ1 EAC1 PEG
--- OUTSIDE RECORDS SUMMARY | 2019-02-22 19:42 | XMS REPORT ---
[facility] Address Unknown Phone Unavailable Care Team Providers Care Business Law Teacher Name Role Phone DELORES RODRIGUEZ Unavailable Unavailable Problems This patient has no known problems. Allergies, Adverse Reactions, Alerts This patient has no known allergies or adverse reactions. Medications This patient has no known medications. Results Test Description Test Time Test Comments Text Results Atomic Results Result Comments CT ABDOMEN/PELVIS W 2018-04-10 14:16:00 [place] [address] Patient Name: RAY OROZCO MR #: [id number] : 1945 Age/Sex: 73/F Req #: [id number] [facility] Phys[facility]: DELORES RODRIGUEZ MD Ordered by: DELORES RODRIGUEZ MD Report #: [id number] Location: [facility] Room/Bed: [place] [address] Procedure: [id number] CT/CT ABDOMEN/PELVIS W Exam Date: 04/10/18 Exam Time: 1512 REPORT STATUS: Signed EXAM: CT Abdomen and Pelvis WITH contrast INDICATION: Anemia COMPARISON: Chest radiograph 04/09/2018, CT Chest 04/09/2018. TECHNIQUE: Abdomen and pelvis were scanned utilizing a multidetector helical scanner from the lung base to the pubic symphysis after administration of IV contrast. Coronal and sagittal reformations were obtained. Routine protocol was performed. Scan was performed when during portal venous phase. IV CONTRAST: 100 cc Isovue 370 ORAL CONTRAST: Water COMPLICATIONS: None RADIATION DOSE: Total DLP: 793 mGy*cm CTDIvol has been reviewed. It is below the limits set by the Radiation Protocol Committee (RPC). FINDINGS: LINES and TUBES: None. LOWER THORAX: Coronary atherosclerosis. Small bilateral pleural effusions, right greater than left. Small pericardial effusion. Patchy atelectasis in bilateral lower lobes. HEPATOBILIARY: No evidence of focal lesion. No biliary ductal dilation. GALLBLADDER: No radio-opaque stones or sludge. No wall thickening. SPLEEN: No splenomegaly. PANCREAS: No focal masses or ductal dilatation. ADRENALS: No adrenal nodules KIDNEYS/URETERS: Kidneys enhance symmetrically. No evidence of hydronephrosis or stone. There is a fat-containing 2.3 cm left midpole renal lesion, consistent with angiomyolipoma. GI TRACT: No evidence of wall thickening or distension. Appendix is normal. Small hiatal hernia. PELVIC ORGANS/BLADDER: Unremarkable. LYMPH NODES: No lymphadenopathy. VESSELS: Moderate atherosclerotic changes of the abdominal aorta and branch vessels. PERITONEUM / RETROPERITONEUM: No free air or fluid. BONES AND SOFT TISSUES: No acute osseous abnormality. No suspicious lytic or blastic lesions. CONCLUSION: No etiology for the patient's anemia identified in the abdomen or pelvis. Small bilateral pleural effusions and small pericardial effusion. Signed by: Dr. Jaycee Packer MD on 04/10/2018 2:28 PM Dictated By: JAYCEE PACKER MD 1428 Transcribed By: WANDA on 04/10/18 1428 COPY TO: DELORES RODRIGUEZ MD CHEST SINGLE (PORTABLE) 2018-04-09 08:36:00 [place] [address] Patient Name: RAY OROZCO MR #: [id number] : 1945 Age/Sex: 73/F Req #: [id number] Adm Physician: DELORES RODRIGUEZ MD Ordered by: COLLIN SHIELDS MD Report #: [id number] Location: [facility] Room/Bed: [place] [address] Procedure: [id number] DX/CHEST SINGLE (PORTABLE) Exam Date: 04/09/18 Exam Time: 0825 REPORT STATUS: Signed Examination: Single AP view of the chest. COMP ARISON: Chest CT 04/06/2018 INDICATION: Shortness of breath DISCUSSION: The lungs remain well-inflated. Small bilateral pleural effusions with passive atelectasis of the lower lobes, unchanged compared to CT and chest radiographs 04/06/2018. Stable enlargement of the cardiac silhouette, shown to reflect a small pericardial effusion. Mild prominence of the pulmonary interstitium also grossly unchanged when accounting for differences in technique. No acute osseous abnormality. IMPRESSION: Stable interstitial edema and small bilateral pleural effusions relative to 04/06/2018. Signed by: Dr. Suresh Clement M.D. on 04/09/2018 8:38 AM Dictated By: SURESH LCEMENT MD 7 Transcribed By: WANDA on 04/09/18837 COPY TO: COLLIN SHIELDS MD CT CHEST WO 2018-04-06 20:19:00 [place] [address] Patient Name: RAY OROZCO MR #: [id number] : 1945 Age/Sex: 73/F Req #: [id number] Adm Physician: DELORES RODRIGUEZ MD Ordered by: STEFANIE COON CASUAL SHOE INSPECTOR Report #: [id number] Location: [facility] Room/Bed: [place] [address] Procedure: [id number] CT/CT CHEST WO Exam Date: Exam Time: REPORT STATUS: Signed EXAM: CT Chest WITHOUT contrast INDICATION: Shortness of breath. SOB Y COMPARISON: None TECHNIQUE: Chest was scanned utilizing a multidetector helical scanner from the lung apex through the level of the adrenal glands without administration of IV contrast. Absence of intravenous contrast decreases sensitivity for detection of lymphadenopathy and vascular pathology. Coronal and sagittal reformations were obtained. Routine protocol was performed. IV CONTRAST: None COMPLICATIONS: None RADIATION DOSE: Total DLP: 411.9 mGy*cm Estimated effective dose: (DLP x 0.014 x size factor) mSv Dose modulation, iterative reconstruction, and/or weight based adjustment of the mA/kV was utilized to reduce the radiation dose to as low as reasonably achievable. FINDINGS: LINES/ TUBES: None. LUNGS AND AIRWAYS: Biapical pleural- parenchymal scarring. Bilateral lower lobe atelectasis secondary to adjacent pleural effusions. Right upper lobe 4 mm nodule (series 3 image 22). Mild smooth interlobular septal thickening. Central airways are clear. PLEURA: Small bilateral pleural effusions, left greater than right. HEART AND MEDIASTINUM: The thyroid gland is normal. No mediastinal, hilar or axillary lymphadenopathy. Prominent mostly subcentimeter mediastinal lymph nodes, largest measuring 1.1 cm, likely reactive. The heart is normal in size.. Small pericardial effusion. Main pulmonary artery measures 3 cm. Mild aortic and left anterior descending coronary artery calcifications. UPPER ABDOMEN: Small hiatal hernia. Submucosal fat deposition in the stomach. Otherwise, unremarkable. BONES: There are degenerative changes in the thoracic spine. SOFT TISSUES: Unremarkable. IMPRESSION: Mild fluid overload with mild interstitial edema, small bilateral pleural effusions with adjacent atelectasis, and small pericardial effusion. Signed by: DR. Silvestre Pack MD on 04/06/2018 8:45 PM Dictated By: SILVESTRE PACK MD 44 Transcribed By: WANDA on 04/06/182044 COPY TO: STEFANIE COON NP VQ LUNG SCAN VENT PERFUSION 2018-04-06 20:15:[address] [address] Patient Name: RAY OROZCO MR #: [id number] : 1945 Age/Sex: 73/F Req #: [id number] Adm Physician: DELORES RODRIGUEZ MD Ordered by: CLINTON ZEPEDA MD Report #: [id number] Location: [facility] Room/Bed: [place] [address] Procedure: [id number] NM/VQ LUNG SCAN VENT PERFUSION Exam Date: Exam Time: REPORT STATUS: Signed Ventilation/perfusion lung scan Clinical Information: 73 F with SOB x 3 days and back pain Comparison: Chest radiograph 04/06/2018; chest CT without contrast 04/06/2018 Discussion: Xenon-133 gas 20 mCi was administered via inhalation. Dynamic images of the lungs in the posterior projection were obtained through single breath, equilibrium, and washout phases. Distribution of tracer activity is minimally irregular throughout the lungs. There are no segmental ventilatory defects. Washout of tracer is mildly delayed with no air trapping. Perfusion images of the lungs were obtained in multiple projections following intravenous administration of approximately 6 mCi of Tc-99m MAA. Distribution of tracer is mildly irregular throughout the lungs. The left major fissure is widened. The contours of the lungs are well demarcated. There are no segmental perfusion defects of any size. The cardiomediastinal silhouette is unremarkable. Impression: 1. Scan findings represent a VERY LOW probability for acute pulmonary embolic disease based on the PIOPED II criteria. 2. Scan evidence of diffuse parenchymal and/or obstructive lung disease. 3. Widening of the left major fissure may be due to fluid loculation or scarring. Signed by: Dr. Sofy Belcher M.D. on 04/06/2018 8:22 PM Dictated By: SOFY BELCHER MD 21 Transcribed By: WANDA on 04/06/182021 COPY TO: CLINTON ZEPEDA MD CHEST 2 VIEWS 2018-04-06 20:09:00 [place] [id number] [place] [address] Patient Name: RAY OROZCO MR #: [id number] : 1945 Age/Sex: 73/F Req #: [id number] Adm Physician: DELORES RODRIGUEZ MD Ordered by: CLINTON ZEPEDA MD Report #: [id number] Location: [facility] Room/Bed: [place] [address] Procedure: [id number] DX/CHEST 2 VIEWS Exam Date: 04/06/18 Exam Time: 1740 REPORT STATUS: Signed EXAMINATION: CHEST 2 VIEWS INDICATION: SOB [id number] COMPARISON: None FINDINGS: PA and lateral views TUBES and LINES: None. LUNGS: Lungs are well inflated. Bibasilar opacities likely representing atelectasis from adjacent effusions. Superimposed consolidation not excluded. Central pulmonary venous congestion. PLEURA: Small bilateral pleural effusions, left greater than right. No pneumothorax. HEART AND MEDIASTINUM: The cardiomediastinal silhouette is partially obscured by adjacent pleural effusions but otherwise unremarkable. BONES AND SOFT TISSUES: No acute osseous lesion. Soft tissues are unremarkable. UPPER ABDOMEN: No free air under the diaphragm. IMPRESSION: Small bilateral pleural effusions, left greater than right, with adjacent atelectasis. Superimposed consolidation not excluded. Signed by: DR. Silvestre Pack MD on 04/06/2018 8:13 PM Dictated By: SILVESTRE PACK MD 12 Transcribed By: WANDA on 04/06/182012 COPY TO: CLINTON ZEPEDA MD SCR MAMM BILATERAL PEACE CAD DIGITAL 2018-04-02 14:04:45 - SCR MAMM BILATERAL PEACE CAD DIGITALBILATERAL DIGITAL SCREENING MAMMOGRAM 3D/2D WITH CAD: 04/02/2018CLINICAL: Asymptomatic. Digital breast tomosynthesis was performed in addition to routine CC and MLO views. Current mammographic images were evaluated by either a [employer] M-Vu or a [employer] ImageChecker CAD (computer aided detection system). Comparison is made to exam dated 03/28/2017 mammogram - [facility]. The tissue of both breasts is heterogeneously dense. This may lower the sensitivity of mammography. There are benign calcifications in both breasts. No suspicious mass, architectural distortion, malignant type calcification, or lymph node abnormality detected. Breast architecture is stable compared to prior exams.IMPRESSION: BENIGNThere is no mammographic evidence of malignancy. Resume annual screening mammography in one year. Sammy monk/basilio:04/02/2018 14:04:45 Quality Assurance Supervisor Final: Emma RODRIGUEZ, [facility] sent: BIRADS 1-2 Normal Mammogram BI-RADS: 2 Benign
== END 2019-02-22 20:28 | disposition home or self-care (01) ==
LOC: ER 19:39
DX: R09.89 Other specified symptoms and signs involving the circulatory and respiratory systems (principal); I10 Essential (primary) hypertension; D64.9 Anemia, unspecified
CPT/HCPCS: 99282